=== PATIENT | female | born 1995 | race Caucasian/White ===

== ENCOUNTER 2018-07-18 21:15 | Inpatient (IN) | payer MEDICAID, OTHER ==
[~2018-07-18] VITALS: Ht 170.2 cm; Wt 113.4 kg
[2018-07-18] MEDS ORDERED: LACT. RINGERS/OXYTOCIN 20UNITS 1,000 ML IV SCH (22:01)
[2018-07-18] MEDS ORDERED: DERMOPLAST 60ML BOTTLE TOP PRN (22:15)
[2018-07-18] MEDS ORDERED: WITCH HAZEL-GLYCERIN PAD TOP PRN (22:15)
[2018-07-18] MEDS ORDERED: METHYLERGONOVINE MALEATE 0.2 MG/ML AMP IM PRN (22:15)
[2018-07-18] MEDS ORDERED: LIDOCAINE 2% (LOCAL ANESTH.) PF 5ml SDV ID ONE (22:15)
[2018-07-18] MEDS ORDERED: PHISODERM TOP SOLN 240ML BTL TOP PRN (22:15)
[2018-07-18] MEDS: LACTATED RINGER'S 1,000 ML IV SCH (22:30)
[2018-07-18] MEDS ORDERED: CARBOPROST TROMETHAMINE 250 MCG/1ML VIAL IM PRN (22:45)
[2018-07-18 22:47] LABS: Basophils # (auto) 0 uL; Basophils % (auto) 0.4 % (0.0-2.0); Eosinophils # (auto) 0.1 uL; Eosinophils % (auto) 0.9 % (0.0-7.0); Hematocrit 36.7 % (36.0-46.0); Hemoglobin 12.2 g/dL (12.2-16.2); Lymphocytes # (auto) 1.7 uL; Lymphocytes % (auto) 15.7 % (10.0-50.0); Mean Corpuscular Hemoglobin 27.6 pg (28.0-32.0); Mean Corpuscular Hgb Conc. 33.3 g/dL (32.0-36.0); Mean Corpuscular Volume 82.9 fL (80.0-100.0); Monocytes # (auto) 0.8 uL; Monocytes % (auto) 7.8 % (0.0-12.0); Neutrophils # (auto) 8.2 uL; Neutrophils % (auto) 75.2 % (37.0-80.0); Platelet Count (auto) 237 10^3/uL (140-450); Red Blood Cells 4.43 10^6/uL (4.0-5.20); White Blood Cell 10.8 10^3/uL (4.4-10.8)
[2018-07-18 23:02] LABS: INR 0.89 (0.9-1.15); Partial Thromboplastin Time 25.9 sec (23.78-33.04); Prothrombin Time 9.6 sec (9.27-12.13)
[2018-07-18 23:03] LABS: Albumin 2.5 g/dL (3.4-5.0); BUN/Creatinine Ratio 18.3; Calcium 8.2 mg/dL (8.5-10.1); Potassium 3.9 mmol/L (3.5-5.1)
[2018-07-18 23:05] LABS: Bilirubin, Total 0.1 mg/dL (0.2-1.0); Total Protein 6.6 g/dL (6.4-8.2)
[2018-07-18 23:15] LABS: Urine Bacteria FEW /hpf (None Seen); Urine Blood Negative /uL (Negative); Urine Mucus FEW (None Seen); Urine Specific Gravity 1.026 (1.001-1.035); Urine WBC 2 /hpf (0 - 5)
[2018-07-18 23:22] LABS: Alcohol, Urine < 3.0 mg/dL (0-5); Amphetamine Screen, Urine NEGATIVE (NEGATIVE); Barbiturate Scree,Urine NEGATIVE (NEGATIVE); Benzodiazephine Screen, Urine NEGATIVE (NEGATIVE); Cannabinoid Screen, Urine NEGATIVE (NEGATIVE); Cocaine Screen, Urine NEGATIVE (NEGATIVE); Opiate Scree,Urine NEGATIVE (NEGATIVE); Phencyclidine Screen, Urine NEGATIVE (NEGATIVE)
[2018-07-19] VITALS (7 sets, daily range): BP systolic 107–150; BP diastolic 65–91
[2018-07-19] MEDS ORDERED: PROMETHAZINE HCL 25 MG/ML 1ML IV PRN (02:20)
[2018-07-19] MEDS ORDERED: PROMETHAZINE HCL 25 MG/ML 1ML ONE (02:26)
[2018-07-19] MEDS: NALBUPHINE HCL 10 MG/1ml INJECTION IV PRN ×2 (02:28→05:40)
[2018-07-19] MEDS: LACTATED RINGER'S 1,000 ML IV SCH ×2 (03:28→21:02)
[2018-07-19] MEDS ORDERED: LIDOCAINE 2% (LOCAL ANESTH.) PF 5ml SDV ONE ×2 (05:47→15:34)
[2018-07-19] MEDS ORDERED: CLINDAMYCIN 900MG IV 50 ML IV SCH (06:00)
[2018-07-19] MEDS ORDERED: fentaNYL W ROPIVACAINE 150 ML EPI SCH ×2 (07:15→08:30)
[2018-07-19] MEDS ORDERED: LIDOCAINE 2% (LOCAL ANESTH.) PF 5ml SDV IJ ONE ×2 (07:15→08:30)
[2018-07-19] MEDS ORDERED: fentaNYL CITRATE 100 MCG/2 ML VL IV ONE ×2 (07:15→08:30)
[2018-07-19] MEDS ORDERED: ePHEDrine SULFATE 50 MG/ML AMP IV ONE ×2 (07:15→08:30)
[2018-07-19] MEDS ORDERED: NALOXONE HCL 0.4 MG/ML VIAL IV ONE ×2 (07:15→08:30)
[2018-07-19] MEDS ORDERED: LIDOCAINE HCL 2 %PF INJ 10ML AMP IJ ONE ×4 (07:43→15:19)
[2018-07-19] MEDS ORDERED: DEXAMETHASONE SOD PHOS 10MG/1ML VIAL INJ ONE (14:48)
[2018-07-19] MEDS ORDERED: EPINEPHrine HCL 1 MG/1 ML AMP ONE (14:48)
[2018-07-19] MEDS ORDERED: ONDANSETRON HCL 4 MG/2 ML VIAL ONE (14:49)
[2018-07-19] MEDS ORDERED: OXYTOCIN 10 UNIT/ML 10ML VIAL ONE (14:49)
[2018-07-19] MEDS ORDERED: ceFAZolin 1GM VL ONE (14:50)
[2018-07-19] MEDS ORDERED: MORPHINE SULF(PF) 0.5MG/ML 10ML VIAL ONE (14:51)
[2018-07-19] MEDS ORDERED: CLINDAMYCIN 900MG IV 50 ML IV ONE ×2 (15:24→16:30)
[2018-07-19] MEDS ORDERED: CLINDAMYCIN 600MG IV 0 ML IV ONE (15:24)
[2018-07-19] MEDS ORDERED: PROPOFOL 10 MG/ML 20 ML IV ONE (15:34)
[2018-07-19] MEDS ORDERED: NALOXONE HCL 0.4 MG/ML VIAL IV PRN ×2 (16:15)
[2018-07-19] MEDS ORDERED: diphenhdrAMINE HCL 50 MG/1 ML VL IV PRN (16:15)
[2018-07-19] MEDS ORDERED: LABETALOL HCL 5 MG/ML 4ML SYRINGE IV PRN (16:15)
[2018-07-19] MEDS ORDERED: METOCLOPRAMIDE HCL 5MG/ml INJ 2ml VIAL IV ONE (16:15)
[2018-07-19] MEDS ORDERED: ONDANSETRON HCL 4 MG/2 ML VIAL IV ONE (16:15)
[2018-07-19] MEDS ORDERED: ePHEDrine SULFATE 50 MG/ML AMP IV PRN (16:15)
[2018-07-19] MEDS ORDERED: HYDROmorphone HCL 2 MG/ML VL IV PRN ×3 (16:15→16:30)
[2018-07-19] MEDS: LACT. RINGERS/OXYTOCIN 20UNITS 1,000 ML IV SCH ×2 (16:17→22:57)
[2018-07-19] MEDS ORDERED: ONDANSETRON HCL 4 MG/2 ML VIAL IV PRN (16:30)
[2018-07-19] MEDS: KETOROLAC TROMETH 30 MG/ML 1ML VIAL IV SCH (21:02)
[2018-07-20] VITALS (11 sets, daily range): BP systolic 108–135; BP diastolic 68–80
[2018-07-20] MEDS ORDERED: CLINDAMYCIN 900MG IV 50 ML IV SCH
[2018-07-20] MEDS: KETOROLAC TROMETH 30 MG/ML 1ML VIAL IV SCH (03:25)
[2018-07-20] MEDS: LACT. RINGERS/OXYTOCIN 20UNITS 1,000 ML IV SCH (05:37)
[2018-07-20] MEDS: LACTATED RINGER'S 1,000 ML IV SCH (06:01)
[2018-07-20 07:06] LABS: RPR Non Reactive (Non Reactive)
[2018-07-20 08:06] LABS: Basophils # (auto) 0 uL; Basophils % (auto) 0.1 % (0.0-2.0); Eosinophils # (auto) 0 uL; Hematocrit 32.5 % (36.0-46.0); Hemoglobin 10.6 g/dL (12.2-16.2); Lymphocytes # (auto) 1.7 uL; Lymphocytes % (auto) 10.3 % (10.0-50.0); Mean Corpuscular Hemoglobin 27.6 pg (28.0-32.0); Mean Corpuscular Hgb Conc. 32.7 g/dL (32.0-36.0); Mean Corpuscular Volume 84.3 fL (80.0-100.0); Monocytes # (auto) 1.4 uL; Monocytes % (auto) 8.2 % (0.0-12.0); Neutrophils # (auto) 13.7 uL; Neutrophils % (auto) 81.4 % (37.0-80.0); Platelet Count (auto) 209 10^3/uL (140-450); Red Blood Cells 3.85 10^6/uL (4.0-5.20); White Blood Cell 16.8 10^3/uL (4.4-10.8)
[2018-07-20] MEDS ORDERED: KETOROLAC TROMETH 30 MG/ML 1ML VIAL IV SCH (09:00)
[2018-07-20] MEDS: CLINDAMYCIN 900MG IV 50 ML IV SCH ×2 (09:22→15:45)
[2018-07-20] MEDS ORDERED: HYDROcodone-ACET 5/325MG TAB PO PRN (10:15)
[2018-07-20] MEDS: HYDROcodone-ACET 5/325MG TAB PO PRN ×2 (14:09→19:15)
[2018-07-20] MEDS: IBUPROFEN 800 MG TAB PO PRN (17:05)
[2018-07-20] MEDS: DOCUSATE SOD 100 MG CAP PO SCH (21:50)
[2018-07-20] MEDS ORDERED: PREN-96 PO (22:20)
[2018-07-20] MEDS ORDERED: FOLI20CA PO (22:23)
[2018-07-20] MEDS ORDERED: TETANUS-DIPTH-ACEL PERTUSSIS 0.5ML SYRG IM ONE (23:45)
[2018-07-21] VITALS (7 sets, daily range): BP systolic 123–138; BP diastolic 66–80
[2018-07-21] MEDS: HYDROcodone-ACET 5/325MG TAB PO PRN ×3 (02:26→17:33)
[2018-07-21] MEDS: IBUPROFEN 800 MG TAB PO PRN ×3 (03:28→21:38)
[2018-07-21] MEDS: DOCUSATE SOD 100 MG CAP PO SCH ×2 (09:54→21:59)
[2018-07-21] MEDS ORDERED: BISACODYL 10 MG RECT SUPP PR ONE (17:45)
[2018-07-22 03:15] VITALS: BP 137/89
[2018-07-22] MEDS: HYDROcodone-ACET 5/325MG TAB PO PRN (03:32)
[2018-07-22] MEDS ORDERED: INFLUENZA QUAD 2018-2019 0.5 ML SYRG IM ONE (07:00)
[2018-07-22 07:20] VITALS: BP 118/79
[2018-07-22] MEDS ORDERED: TETANUS-DIPTH-ACEL PERTUSSIS 0.5ML SYRG IM ONE (08:00)
[2018-07-22] MEDS: DOCUSATE SOD 100 MG CAP PO SCH (10:23)
== END 2018-07-22 09:35 | disposition home or self-care (01) | DRG 540 ==
LOC: LDRP 21:15 → OBSVTOIN 21:15 → LDRP 07-19 22:49
PROVIDERS: ADMIT Specialist; ATTEND Specialist
PROC: 10D00Z1 Extraction of Products of Conception, Low, Open Approach (ICD-10-PCS; principal; 2018-07-19 15:07)
DX: O77.0 Labor and delivery complicated by meconium in amniotic fluid (principal); O64.0XX0 Obstructed labor due to incomplete rotation of fetal head, not applicable or unspecified; O62.1 Secondary uterine inertia; O66.9 Obstructed labor, unspecified; O76 Abnormality in fetal heart rate and rhythm complicating labor and delivery; Z37.0 Single live birth; Z3A.39 39 weeks gestation of pregnancy
CPT/HCPCS: 36415; 51702; 59025; 76805; 80053; 80307; 81001; 81002; 84550; 85025; 85610; 85730; 86592; 86850; 86900; 86901; 90674; 90715; 94760; 96361; 96365; 96366; 96372; 96375; A6257; G0378; J0171; J0690; J1100; J1885; J2001; J2405; J2590; J2704; J3010; J3490